=== PATIENT | female | born 1955 | race Caucasian/White ===

== ENCOUNTER 2017-07-16 05:16 | Day surgery (SDC) | payer MEDICAID ==
[2017-07-08 15:00] LABS: BASOPHILS # (AUTO) 0.1 X10'3 (0-0.2); BASOPHILS % (AUTO) 1.4 % (0-1); EOSINOPHILS # (AUTO) 0.1 X10'3 (0-0.9); EOSINOPHILS % (AUTO) 1.6 % (0-6); LYMPHOCYTES # (AUTO) 1.7 X10'3 (1.1-4.8); LYMPHOCYTES % (AUTO) 22.4 % (21-51); MEAN CORPUSCULAR HEMOGLOBIN 26.3 PG (27.0-31.0); MEAN CORPUSCULAR VOLUME 79.7 FL (78-98); MEAN PLATELET VOLUME 9.1 FL (7.4-10.4); MONOCYTES # (AUTO) 0.5 X10'3 (0-0.9); MONOCYTES % (AUTO) 6.9 % (2-12); NEUTROPHILS # (AUTO) 5.2 X10'3 (1.8-7.7); NEUTROPHILS % (AUTO) 67.7 % (42-75); PRE OP HEMATOCRIT 43.5 % (35.0-45.0); PRE OP HEMOGLOBIN 14.4 g/dL (12.0-16.0); PRE OP PLATELET COUNT 317 X10'3 (140-440); RED BLOOD COUNT 5.46 X10'6 (4.20-5.60); RED CELL DISTRIBUTION WIDTH 16.7 % (11.5-14.5)
[2017-07-08 15:14] LABS: ALBUMIN 3.9 G/DL (3.4-5.0); ALKALINE PHOSPHATASE 105 IU/L (46-116); BLOOD UREA NITROGEN 16 MG/DL (7-18); BUN/CREATININE RATIO 14.8 (6.6-38.0); CALCIUM 9.5 MG/DL (8.5-10.1); CHLORIDE 105 MMOL/L (99-107); CREATININE 1.08 MG/DL (0.40-0.90); PRE OP ALT 22 U/L (30-65); PRE OP ANION GAP 12 (8-16); PRE OP AST 15 U/L (10-37); PRE OP BILIRUB, TOTAL 0.8 MG/DL (0.0-1.0); PRE OP GLUCOSE 106 MG/DL (70-104); PRE OP POTASSIUM 3.4 MMOL/L (3.4-5.1); PRE OP SODIUM 143 MMOL/L (135-145); TOTAL CARBON DIOXIDE 26.2 MMOL/L (24-32); eGFR 52 ML/MIN
[~2017-07-16] VITALS: Ht 167.6 cm; Wt 119.7 kg
[2017-07-16] VITALS (10 sets, daily range): BP systolic 123–163; BP diastolic 60–94
[~2017-07-16 05:16] MED LIST: AMLO10TA PO; ATOR20TA PO; CHOL10002 PO; FAMO40TA58 PO; FLAX100031 PO; GABA-530 PO; IPRA4AER IH; LOSA100T28 PO; MAGN500C16 PO; MECL-111 PO; NYST1000 PO; OXYB5TAB11 PO; POTA10TA19 PO; ringers solution, lacted 1,000 ML IV SCH
[2017-07-16] MEDS ORDERED: albuterol 2.5 MG/3 ML nebule NEB ONE (05:30)
[2017-07-16] MEDS ORDERED: famotidine 20mg tablet PO ONE (05:30)
[2017-07-16] MEDS ORDERED: clindamycin 600mg/D5W 50ml 50 ML IV ONE (05:30)
[2017-07-16] MEDS ORDERED: VANCOMYCIN INJ 1000 MG in NORMAL SALINE 250ml IV.SOLN IV ONE (06:12)
[2017-07-16] MEDS ORDERED: levoFLOXACIN-Levaquin 750MG/D5 150 ML IV ONE (06:16)
[2017-07-16] MEDS ORDERED: LIDOcaine 1% (10mg/ml) 2ml vial ONE (06:36)
[2017-07-16] MEDS ORDERED: BUPIVAcaine/PF 2.5 mg/ml (0.25%) 30ml vial ONE (06:41)
[2017-07-16] MEDS ORDERED: sevoflurane 250ml liquid IH ONE (07:30)
[2017-07-16] MEDS ORDERED: fentaNYL/PF 50MCG/1 ML 2ML syringe ONE ×2 (07:37→08:10)
[2017-07-16] MEDS ORDERED: propofol inj 20 ML IV ONE (07:37)
[2017-07-16] MEDS ORDERED: LIDOcaine 1%/PF (10mg/ml) 5ml vial ONE (07:37)
[2017-07-16] MEDS ORDERED: midazolam 2 mg/2 ml injection ONE (07:37)
[2017-07-16] MEDS ORDERED: dexamethasone sod phosphate 4mg/ml inj. ONE (07:51)
[2017-07-16] MEDS ORDERED: ondansetron/PF 4mg/2ml inj ONE (08:01)
[2017-07-16] MEDS ORDERED: ketorolac trometh. 30mg/ml inj. ONE (08:01)
[2017-07-16] MEDS ORDERED: ringers solution, lacted 1,000 ML IV SCH (08:18)
[2017-07-16] MEDS ORDERED: proCHLORperazine 10 MG/2 ml inj IV PRN (08:20)
[2017-07-16] MEDS ORDERED: ondansetron/PF 4mg/2ml inj IV PRN (08:20)
[2017-07-16] MEDS ORDERED: meperidine/PF 25mg/ml syringe IV PRN ×3 (08:20)
[2017-07-16] MEDS ORDERED: morphine sulfate 8 MG/ML SYRINGE IV PRN ×2 (08:20)
[2017-07-16] MEDS ORDERED: triamcinolone acetonide 40mg/ml inj ONE (08:50)
== END 2017-07-16 10:13 | disposition home or self-care (01) ==
LOC: PAS 05:16
PROVIDERS: ATTEND Orthopaedic Surgery
DX: S83.242A Other tear of medial meniscus, current injury, left knee, initial encounter (principal); S83.282A Other tear of lateral meniscus, current injury, left knee, initial encounter; I10 Essential (primary) hypertension; J45.909 Unspecified asthma, uncomplicated; G47.33 Obstructive sleep apnea (adult) (pediatric); K21.9 Gastro-esophageal reflux disease without esophagitis; E66.01 Morbid (severe) obesity due to excess calories; F32.9 Major depressive disorder, single episode, unspecified; Z88.0 Allergy status to penicillin; Z91.041 Radiographic dye allergy status; X58.XXXA Exposure to other specified factors, initial encounter; Y93.9 Activity, unspecified; Y92.9 Unspecified place or not applicable
CPT/HCPCS: 29879; 29880; 36415; 80053; 85025; 94640; 94760; A6449; J0780; J1100; J1885; J1956; J2001; J2250; J2405; J2704; J3010; J3301; J3370; J3490; J7120; A6250

== ENCOUNTER 2022-03-17 18:32 | Emergency (ER) | payer MEDICAID ==
[~2022-03-17] VITALS: Ht 167.6 cm; Wt 108.8 kg
[~2022-03-17 18:32] MED LIST changes: -LOSA100T28 PO; +LOSA100T57 PO; -MAGN500C16 PO; +MAGN500C4 PO; -MECL-111 PO; +MECL-159 PO; -NYST1000 PO; -OXYB5TAB11 PO; +OXYB5TAB16 PO; +POTA-192 PO; -POTA10TA19 PO; -ringers solution, lacted 1,000 ML IV SCH
--- NOTE | 2022-03-17 19:06 | NUR ---
Patient received from triage, reports that she has been experiencing flu-like symptoms since thursday and worsened today.
[2022-03-17] MEDS ORDERED: carVEDilol 3.125mg tablet PO SCH (20:00)
[2022-03-17] MEDS ORDERED: aspirin 81mg tab.chew PO ONE (20:00)
[2022-03-17] MEDS ORDERED: nitroGLYCERIN 0.4mg/hour patch TD ONE (20:00)
[2022-03-17 20:21] LABS: BASOPHILS % (AUTO) 1.1 % (0-1); EOSINOPHILS % (AUTO) 0.5 % (0-6); HEMATOCRIT 37.5 % (35.0-45.0); HEMOGLOBIN 12.4 g/dl (12.0-16.0); LYMPHOCYTES # (AUTO) 0.4 X10'3 (1.1-4.8); LYMPHOCYTES % (AUTO) 10.8 % (21-51); MEAN CORPUSCULAR HEMOGLOBIN 25.7 PG (27.0-31.0); MEAN CORPUSCULAR HGB CONC 33.1 g/dL (33.0-36.5); MEAN CORPUSCULAR VOLUME 77.8 FL (78-98); MEAN PLATELET VOLUME 8.8 FL (7.4-10.4); MONOCYTES # (AUTO) 0.6 X10'3 (0-0.9); MONOCYTES % (AUTO) 16.3 % (2-12); NEUTROPHILS # (AUTO) 2.5 X10'3 (1.8-7.7); NEUTROPHILS % (AUTO) 71.3 % (42-75); PLATELET COUNT 178 X10'3 (140-440); RED BLOOD COUNT 4.82 X10'6 (4.20-5.60); RED CELL DISTRIBUTION WIDTH 15.3 % (11.5-14.5); WHITE BLOOD COUNT 3.5 X10'3 (4.5-11.0)
[2022-03-17 20:35] LABS: ALANINE AMINOTRANSFERASE 22 U/L (12-78); ALBUMIN 3.6 G/DL (3.4-5.0); ALBUMIN/GLOBULIN RATIO 1.1 (1.1-1.5); ALKALINE PHOSPHATASE 105 IU/L (46-116); ANION GAP 10 (8-16); APTT 27 SECONDS (22-32); ASPARTATE AMINO TRANSFERASE 12 U/L (10-37); BILIRUBIN,TOTAL 0.3 MG/DL (0.1-1.0); BLOOD UREA NITROGEN 14 MG/DL (7-18); BUN/CREATININE RATIO 16.3 (6.6-38.0); CALCIUM 8.1 MG/DL (8.5-10.1); CHLORIDE 108 MMOL/L (99-107); CREATININE 0.86 MG/DL (0.40-0.90); GLUCOSE 91 MG/DL (70-104); POTASSIUM 3.8 MMOL/L (3.5-5.1); SODIUM 141 MMOL/L (135-145); TOTAL CARBON DIOXIDE 22.8 MMOL/L (24-32); eGFR 66 ML/MIN
[2022-03-17 20:47] LABS: D-DIMER 0.53 MG/L FEU (0-0.50)
[2022-03-17 20:54] LABS: ANISOCYTOSIS 1+; MICROCYTOSIS 1+; PLATELET ESTIMATE NORMAL; TOTAL CELLS COUNTED 100
[2022-03-17 21:42] LABS: C-REACTIVE PROTEIN 1.39 MG/DL (0.0-0.5)
[2022-03-17] MEDS ORDERED: AZIT250T PO (22:08)
[2022-03-17] MEDS ORDERED: azithromycin 250mg tablet PO ONE (22:10)
[2022-03-17 22:30] VITALS: BP 135/84
== END 2022-03-17 22:39 | disposition home or self-care (01) ==
LOC: ER 18:33
DX: U07.1 COVID-19 (principal); J12.9 Viral pneumonia, unspecified; J45.909 Unspecified asthma, uncomplicated; M54.50 Low back pain, unspecified; I11.0 Hypertensive heart disease with heart failure; I50.9 Heart failure, unspecified; Z88.0 Allergy status to penicillin; Z88.1 Allergy status to other antibiotic agents; Z88.5 Allergy status to narcotic agent; Z91.041 Radiographic dye allergy status
CPT/HCPCS: 36415; 71045; 80053; 83880; 84145; 84484; 85007; 85025; 85379; 85610; 85730; 86140; 87635; 93005; 99285; C9803

== ENCOUNTER 2022-03-26 14:17 | Emergency (ER) | payer MEDICAID ==
[~2022-03-26 14:17] MED LIST changes: +AZIT250T PO
[2022-03-26] MEDS ORDERED: normal saline 1000ML IV soln IVB ONE (14:25)
[2022-03-26 15:32] LABS: BASOPHILS % (AUTO) 0.4 % (0-1); EOSINOPHILS % (AUTO) 0.7 % (0-6); HEMATOCRIT 42.6 % (35.0-45.0); HEMOGLOBIN 14.2 g/dl (12.0-16.0); LYMPHOCYTES # (AUTO) 0.8 X10'3 (1.1-4.8); LYMPHOCYTES % (AUTO) 23.7 % (21-51); MEAN CORPUSCULAR HEMOGLOBIN 25.2 PG (27.0-31.0); MEAN CORPUSCULAR HGB CONC 33.4 g/dL (33.0-36.5); MEAN CORPUSCULAR VOLUME 75.3 FL (78-98); MEAN PLATELET VOLUME 9.2 FL (7.4-10.4); MONOCYTES # (AUTO) 0.5 X10'3 (0-0.9); MONOCYTES % (AUTO) 15.8 % (2-12); NEUTROPHILS % (AUTO) 59.4 % (42-75); PLATELET COUNT 153 X10'3 (140-440); RED BLOOD COUNT 5.66 X10'6 (4.20-5.60); RED CELL DISTRIBUTION WIDTH 15.2 % (11.5-14.5); WHITE BLOOD COUNT 3.3 X10'3 (4.5-11.0)
[2022-03-26 15:52] LABS: ALANINE AMINOTRANSFERASE 18 U/L (12-78); ALBUMIN 3.8 G/DL (3.4-5.0); ALBUMIN/GLOBULIN RATIO 1.1 (1.1-1.5); ALKALINE PHOSPHATASE 119 IU/L (46-116); ANION GAP 13 (8-16); ASPARTATE AMINO TRANSFERASE 18 U/L (10-37); BILIRUBIN,TOTAL 0.7 MG/DL (0.1-1.0); BLOOD UREA NITROGEN 12 MG/DL (7-18); CALCIUM 8.5 MG/DL (8.5-10.1); CHLORIDE 107 MMOL/L (99-107); CREATININE 0.75 MG/DL (0.40-0.90); GLUCOSE 99 MG/DL (70-104); POTASSIUM 3.2 MMOL/L (3.5-5.1); SODIUM 142 MMOL/L (135-145); TOTAL CARBON DIOXIDE 21.9 MMOL/L (24-32); TOTAL PROTEIN 7.2 G/DL (6.4-8.2); eGFR 78 ML/MIN
[2022-03-26 15:56] LABS: MICROCYTOSIS 1+; PLATELET ESTIMATE NORMAL; TOTAL CELLS COUNTED 100
[2022-03-26 15:57] LABS: LARGE PLATELETS FEW
[2022-03-26 19:14] LABS: CLARITY,URINE CLEAR (Clear); COLOR,URINE YELLOW (Yellow); GLUCOSE, URINE NEGATIVE (Neg); KETONES,URINE TRACE mg/dl (Neg); LEUKOCYTE ESTERASE ,URINE NEGATIVE (Neg); NITRITES, URINE NEGATIVE (Neg); OCCULT BLOOD,URINE NEGATIVE (Neg); PH,URINE 7.5 (4.8-8.0); PROTEIN,URINE NEGATIVE (Neg); UROBILINOGEN,URINE 0.2 E.U/dL (0.2-1.0)
[2022-03-26 19:20] LABS: UA COLLECTION TYPE URINAL
[2022-03-26 19:21] VITALS: BP 142/55
== END 2022-03-26 19:23 | disposition home or self-care (01) ==
LOC: ER 14:18
DX: R53.1 Weakness (principal); R50.9 Fever, unspecified; R53.83 Other fatigue; R06.02 Shortness of breath; R05.9 Cough, unspecified; G43.909 Migraine, unspecified, not intractable, without status migrainosus; E78.00 Pure hypercholesterolemia, unspecified; I10 Essential (primary) hypertension; J45.909 Unspecified asthma, uncomplicated; E11.9 Type 2 diabetes mellitus without complications; M19.90 Unspecified osteoarthritis, unspecified site; G89.29 Other chronic pain; F41.9 Anxiety disorder, unspecified; Z86.711 Personal history of pulmonary embolism; Z86.2 Personal history of diseases of the blood and blood-forming organs and certain disorders involving the immune mechanism; Z87.440 Personal history of urinary (tract) infections; Z90.89 Acquired absence of other organs; Z98.890 Other specified postprocedural states; Z88.8 Allergy status to other drugs, medicaments and biological substances; Z88.0 Allergy status to penicillin; Z88.5 Allergy status to narcotic agent; Z88.1 Allergy status to other antibiotic agents; Z79.2 Long term (current) use of antibiotics; Z79.899 Other long term (current) drug therapy
CPT/HCPCS: 71045; 80053; 81003; 83880; 85007; 85025; 93005; 96360; 96361; 99285; J7030